=== PATIENT | male | born 1945 | race Caucasian/White ===

== ENCOUNTER 2017-01-10 09:49 | Inpatient (IN) | payer MEDICARE, MEDICAID ==
[~2017-01-10] VITALS: Ht 172.7 cm; Wt 104.3 kg
[~2017-01-10 09:49] MED LIST: ACET1TAB12 PO; ACLI400A2 IH; ALBU4TAB6 PO; ALBUTEROL INHALER INH; ASPI-1159 PO; ATROV INH; ATROVENT INHALER INH; DILT240C91 PO; FLUT1DIS3 INH; FURO40TA5 PO; ISOS30TA6 PO; LOSA50TA20 PO; LOVA20TA2 PO; POTA10TA11 PO; TAMS-11 PO; TIOT18CA3 INH
[2017-01-10] MEDS ORDERED: METHYLPREDNISOLONE SOD SUCC 125 MG/2 ML VIAL IV STA (10:22)
[2017-01-10] MEDS ORDERED: ALBUTEROL (0.083%) 2.5MG/3ML NEB HHN STA (10:22)
[2017-01-10] MEDS ORDERED: IPRATROPIUM BROMIDE (0.02%) 0.5MG/2.5ML NEB HHN STA (10:22)
[2017-01-10 11:04] LABS: HEMATOCRIT. 45.4 % (42.0-52.0); HEMOGLOBIN. 15.3 g/dL (14.0-18.0); MEAN CORPUSCULAR HEMOGLOBIN 30.3 pg (28.0-32.0); MEAN CORPUSCULAR VOLUME 89.9 fL (80.0-94.0); PLATELET 154 x1000/uL (130-400); RED BLOOD CELL COUNT 5.05 mill/uL (4.7-6.1); RED CELL DISTRIBUTION WIDTH 17.4 % (11.6-14.6)
[2017-01-10 11:08] LABS: INR 1.3; PROTHROMBIN TIME 13.5 sec (9.4-11.6)
[2017-01-10 11:24] LABS: CARBON DIOXIDE 21 mEq/L (21-32); CHLORIDE 101 mEq/L (98-107)
[2017-01-10 11:26] LABS: TROPONIN I 0.47 ng/mL (0.00-0.04)
[2017-01-10] MEDS ORDERED: ASPIRIN 325MG TABLET PO ONE (11:30)
[2017-01-10] MEDS ORDERED: ENOXAPARIN 120MG/0.8ML SYR SUBCUT ONE (11:45)
[2017-01-10 12:00] LABS: BG BASE EXCESS -1.4 mmol/L (-2.0-2.0); BG CARBOXYHEMOGLOBIN 1.8 % (0.5-1.5); BG DEOXYHEMOGLOBIN 2.9 % (0.0-5.0); BG FRACTION INSPIRED OXYGEN 45; BG HCO3 ACT 21.9 mmol/L (22.0-26.0); BG METHEMOGLOBIN 0.3 % (0.0-1.5); BG PCO2 33.2 mmHg (35.0-45.0); BG PH 7.438 (7.350-7.450); BG PO2 88.5 mmHg (75.0-100.0); BG SAMPLE SITE RIGHT BRACHIAL; BG TOTAL HEMOGLOBIN 15.4 g/dL (12.0-18.0)
[2017-01-10 12:29] LABS: PLATELET ESTIMATE NORMAL
[2017-01-10 14:00] VITALS: BP 120/63
[2017-01-10] MEDS ORDERED: MULT-1234 PO (14:11)
[2017-01-10] MEDS ORDERED: FINA1TAB18 PO (14:11)
[2017-01-10] MEDS ORDERED: DILT120C51 PO (14:11)
[2017-01-10] MEDS ORDERED: NITR0.4T49 SL (14:11)
[2017-01-10] MEDS ORDERED: SIME125C81 PO (14:11)
[2017-01-10] MEDS ORDERED: ALBU18HF2 IH (14:11)
[2017-01-10] MEDS ORDERED: ATOR20TA65 PO (14:11)
[2017-01-10] MEDS: METHYLPREDNISOLONE SOD SUCC 125 MG/2 ML VIAL IV SCH ×2 (15:00→21:06)
[2017-01-10] MEDS: MORPHINE SULFATE 10 MG/ML CPJ IV PRN ×2 (15:01→19:55)
[2017-01-10] MEDS: IPRATROPIUM/ALBUTEROL 0.5-3(2.5)MG/3ML NEB HHN SCH ×2 (15:40→21:24)
[2017-01-10] MEDS: DILTIAZEM HCL 120MG CAPSULE CD 24HR PO SCH ×2 (16:00→21:00)
[2017-01-10] MEDS ORDERED: CLONIDINE 0.1MG TABLET PO PRN (16:00)
[2017-01-10] MEDS: ASPIRIN 81MG EC TABLET PO SCH (17:39)
[2017-01-10] MEDS: TAMSULOSIN HCL 0.4MG SR CAPSULE PO SCH (18:46)
[2017-01-10 20:00] VITALS: BP 112/59
[2017-01-10 21:03] LABS: CLARITY URINE CLEAR (CLEAR); COLOR URINE DARK YELLOW (YELLOW); GLUCOSE URINE NEGATIVE (NEGATIVE); KETONES URINE NEGATIVE (NEGATIVE); LEUKOCYTE ESTERASE URINE NEGATIVE (NEGATIVE); NITRITE URINE NEGATIVE (NEGATIVE); OCCULT BLOOD URINE NEGATIVE (NEGATIVE); PROTEIN URINE TRACE (NEGATIVE); SPECIFIC GRAVITY URINE 1.023 (1.005-1.030)
[2017-01-10] MEDS: FLUTICASONE/VILANTEROL 200-25 BLST.W.DEV ORI SCH (21:25)
[2017-01-11] VITALS (7 sets, daily range): BP systolic 91–125; BP diastolic 42–77
[2017-01-11] MEDS: IPRATROPIUM/ALBUTEROL 0.5-3(2.5)MG/3ML NEB HHN SCH ×7 (00:56→23:30)
[2017-01-11] MEDS: MORPHINE SULFATE 10 MG/ML CPJ IV PRN ×3 (05:09→20:58)
[2017-01-11] MEDS: METHYLPREDNISOLONE SOD SUCC 125 MG/2 ML VIAL IV SCH ×3 (05:09→21:36)
[2017-01-11 07:15] LABS: CREATINE KINASE MB FRACTION 5.3 ng/mL (0.5-3.6); TROPONIN I 0.19 ng/mL (0.00-0.04)
[2017-01-11 07:32] LABS: HEMATOCRIT. 43.8 % (42.0-52.0); HEMOGLOBIN. 14.7 g/dL (14.0-18.0); MEAN CORPUSCULAR HEMOGLOBIN 29.9 pg (28.0-32.0); MEAN CORPUSCULAR VOLUME 89.5 fL (80.0-94.0); PLATELET 158 x1000/uL (130-400); RED CELL DISTRIBUTION WIDTH 17.8 % (11.6-14.6)
[2017-01-11] MEDS: DILTIAZEM HCL 120MG CAPSULE CD 24HR PO SCH ×2 (08:16→21:07)
[2017-01-11] MEDS: TAMSULOSIN HCL 0.4MG SR CAPSULE PO SCH (09:00)
[2017-01-11] MEDS: ASPIRIN 81MG EC TABLET PO SCH (09:08)
[2017-01-11] MEDS: FINASTERIDE 5MG TABLET PO SCH (09:09)
[2017-01-11] MEDS: POLYETHYLENE GLYCOL 3350 (17GM) 1 DOSE PACK PO SCH (10:15)
[2017-01-11 17:29] LABS: PLATELET ESTIMATE NORMAL
[2017-01-11 23:22] LABS: SODIUM URINE RANDOM < 5 mEq/L
[2017-01-12] VITALS: BP 96/48
[2017-01-12] MEDS: IPRATROPIUM/ALBUTEROL 0.5-3(2.5)MG/3ML NEB HHN SCH ×6 (03:30→23:30)
[2017-01-12] MEDS: MORPHINE SULFATE 10 MG/ML CPJ IV PRN ×2 (03:58→09:58)
[2017-01-12 04:00] VITALS: BP 121/66
[2017-01-12 06:19] LABS: HEMATOCRIT. 47.7 % (42.0-52.0); MEAN CORPUSCULAR HEMOGLOBIN 29.9 pg (28.0-32.0); MEAN CORPUSCULAR VOLUME 89.2 fL (80.0-94.0); MEAN PLATELET VOLUME 8.1 fl (7.4-10.4); PLATELET 191 x1000/uL (130-400); RED BLOOD CELL COUNT 5.35 mill/uL (4.7-6.1); RED CELL DISTRIBUTION WIDTH 17.6 % (11.6-14.6)
[2017-01-12] MEDS: METHYLPREDNISOLONE SOD SUCC 125 MG/2 ML VIAL IV SCH (06:19)
[2017-01-12 08:00] VITALS: BP 115/80
[2017-01-12 08:44] LABS: PHOSPHORUS 2.8 mg/dL (2.5-4.9)
[2017-01-12] MEDS: ASPIRIN 81MG EC TABLET PO SCH (08:59)
[2017-01-12] MEDS: TAMSULOSIN HCL 0.4MG SR CAPSULE PO SCH (08:59)
[2017-01-12] MEDS: DILTIAZEM HCL 120MG CAPSULE CD 24HR PO SCH ×2 (09:00→21:00)
[2017-01-12] MEDS: POLYETHYLENE GLYCOL 3350 (17GM) 1 DOSE PACK PO SCH (09:00)
[2017-01-12] MEDS: FLUTICASONE/VILANTEROL 200-25 BLST.W.DEV ORI SCH (09:00)
[2017-01-12] MEDS: FINASTERIDE 5MG TABLET PO SCH (09:02)
[2017-01-12 11:25] LABS: PLATELET ESTIMATE NORMAL
[2017-01-12 12:00] VITALS: BP 119/68
[2017-01-12 13:42] LABS: BG BASE EXCESS -4.7 mmol/L (-2.0-2.0); BG DEOXYHEMOGLOBIN 11.2 % (0.0-5.0); BG FRACTION INSPIRED OXYGEN 21; BG HCO3 ACT 19.4 mmol/L (22.0-26.0); BG METHEMOGLOBIN 0.4 % (0.0-1.5); BG OXYGEN SATURATION 88.6 % (92.0-98.5); BG OXYHEMOGLOBIN 87.4 % (94.0-97.0); BG PCO2 33.5 mmHg (35.0-45.0); BG PO2 52.8 mmHg (75.0-100.0); BG SAMPLE SITE RIGHT BRACHIAL; BG TOTAL HEMOGLOBIN 16.4 g/dL (12.0-18.0); BG VENT MODE ROOM AIR
[2017-01-12 16:00] VITALS: BP 123/62
[2017-01-12] MEDS: PREDNISONE 10MG TABLET PO SCH (18:42)
[2017-01-12 20:00] VITALS: BP 125/66
[2017-01-13] VITALS: BP 114/68
[2017-01-13 04:00] VITALS: BP 124/71
[2017-01-13] MEDS: IPRATROPIUM/ALBUTEROL 0.5-3(2.5)MG/3ML NEB HHN SCH ×3 (04:50→10:58)
[2017-01-13 06:13] LABS: TROPONIN I 0.15 ng/mL (0.00-0.04)
[2017-01-13 06:24] LABS: HEMATOCRIT. 46.4 % (42.0-52.0); HEMOGLOBIN. 15.8 g/dL (14.0-18.0); MEAN CORPUSCULAR HEMOGLOBIN 30.2 pg (28.0-32.0); MEAN CORPUSCULAR VOLUME 88.5 fL (80.0-94.0); PLATELET 199 x1000/uL (130-400); RED BLOOD CELL COUNT 5.24 mill/uL (4.7-6.1); RED CELL DISTRIBUTION WIDTH 17.8 % (11.6-14.6)
[2017-01-13 08:00] VITALS: BP 138/77
[2017-01-13] MEDS ORDERED: FUROSEMIDE 20MG TABLET PO SCH (09:00)
[2017-01-13] MEDS: FINASTERIDE 5MG TABLET PO SCH (09:00)
[2017-01-13] MEDS: FLUTICASONE/VILANTEROL 200-25 BLST.W.DEV ORI SCH (09:00)
[2017-01-13] MEDS: POLYETHYLENE GLYCOL 3350 (17GM) 1 DOSE PACK PO SCH (09:00)
[2017-01-13] MEDS: PREDNISONE 10MG TABLET PO SCH (09:03)
[2017-01-13] MEDS: ASPIRIN 81MG EC TABLET PO SCH (09:03)
[2017-01-13] MEDS: TAMSULOSIN HCL 0.4MG SR CAPSULE PO SCH (09:13)
[2017-01-13] MEDS ORDERED: PREDNISONE 10MG TABLET PO NR (09:15)
[2017-01-13] MEDS: DILTIAZEM HCL 120MG CAPSULE CD 24HR PO SCH (09:15)
[2017-01-13 09:20] LABS: PLATELET ESTIMATE NORMAL
[2017-01-13] MEDS ORDERED: PREDNISONE 20MG TABLET PO ONE (09:30)
[2017-01-13 09:41] LABS: SODIUM URINE RANDOM 6 mEq/L
[2017-01-13 12:00] VITALS: BP 99/57
[2017-01-13] MEDS ORDERED: LOSARTAN POTASSIUM 50 MG TABLET PO SCH (12:00)
[2017-01-13 12:19] VITALS: BP 146/92
[2017-01-27 09:08] LABS: *CREATININE RANDOM URINE 75.8 mg/dL (Not Estab.); MICROALBUMIN RANDOM URINE 31.4 ug/mL (Not Estab.)
== END 2017-01-13 15:20 | disposition home or self-care (01) | DRG 682 ==
LOC: EDBEDREQ 11:53 → ER 12:22 → 6WST 12:23 → ENRESERV 12:30
PROVIDERS: ADMIT Internal Medicine Critical Care Medicine; ATTEND Internal Medicine Critical Care Medicine
DX: N17.9 Acute kidney failure, unspecified (principal); J96.91 Respiratory failure, unspecified with hypoxia; J44.1 Chronic obstructive pulmonary disease with (acute) exacerbation; E87.1 Hypo-osmolality and hyponatremia; I13.0 Hypertensive heart and chronic kidney disease with heart failure and stage 1 through stage 4 chronic kidney disease, or unspecified chronic kidney disease; B19.20 Unspecified viral hepatitis C without hepatic coma; E78.5 Hyperlipidemia, unspecified; E86.0 Dehydration; F32.9 Major depressive disorder, single episode, unspecified; I25.10 Atherosclerotic heart disease of native coronary artery without angina pectoris; I25.5 Ischemic cardiomyopathy; I50.9 Heart failure, unspecified; I71.4 Abdominal aortic aneurysm, without rupture; M17.0 Bilateral primary osteoarthritis of knee; N18.3 Chronic kidney disease, stage 3 (moderate); N20.9 Urinary calculus, unspecified; N40.0 Benign prostatic hyperplasia without lower urinary tract symptoms; Z88.8 Allergy status to other drugs, medicaments and biological substances; Z59.0 Homelessness; Z79.899 Other long term (current) drug therapy; Z86.79 Personal history of other diseases of the circulatory system; Z87.891 Personal history of nicotine dependence; Z90.49 Acquired absence of other specified parts of digestive tract; Z95.5 Presence of coronary angioplasty implant and graft; Z95.810 Presence of automatic (implantable) cardiac defibrillator; Z99.81 Dependence on supplemental oxygen; Z79.82 Long term (current) use of aspirin; F10.21 Alcohol dependence, in remission
CPT/HCPCS: 36415; 36600; 71010; 76705; 76770; 80048; 80053; 80061; 80076; 81001; 82043; 82375; 82553; 82570; 82805; 83735; 83880; 83935; 84100; 84153; 84156; 84300; 84443; 84481; 84484; 85025; 85379; 85610; 86803; 87040; 87086; 93005; 93970; 94640; 94644; 94664; 96374; 96375; 99291; J1650; J2270; J2930; J7512; J7611; J7620

== ENCOUNTER 2017-04-29 22:00 | Inpatient (IN) | payer MEDICARE, MEDICAID ==
[~2017-04-29] VITALS: Ht 172.7 cm; Wt 95.1 kg
[2017-04-29 22:00] VITALS: BP 126/75
[~2017-04-29 22:00] MED LIST changes: +ACET-2178 PO; -ACLI400A2 IH; +ALBU18HF2 IH; -ALBU4TAB6 PO; -ALBUTEROL INHALER INH; +ATOR20TA65 PO; +ATROV IH; -ATROV INH; -ATROVENT INHALER INH; +BISA10SU8 RC; +DILT120C51 PO; -DILT240C91 PO; +DOCU250C69 PO; +FAMO20TA8 PO; +FINA1TAB18 PO; +FURO40TA5 IV; -FURO40TA5 PO; +LACT10SO6 PO; +MORP15TA67 IV; +MULT-1234 PO; +NITR0.4T49 SL; +NYST15OI TP; +P20 PO; -POTA10TA11 PO; +SIME125C81 PO; +[UNRECOGNIZED DRUG - CODE] TP
[2017-04-29 23:00] VITALS: BP 126/75
[2017-04-30] MEDS ORDERED: LACTULOSE 20G/30ML UDC PO PRN (01:00)
[2017-04-30] MEDS: ACETAMINOPHEN 325MG TABLET PO PRN (03:32)
[2017-04-30] MEDS: IPRATROPIUM/ALBUTEROL 0.5-3(2.5)MG/3ML NEB HHN SCH ×5 (04:00→21:30)
[2017-04-30 06:56] LABS: HEMATOCRIT. 47.5 % (42.0-52.0); HEMOGLOBIN. 15.5 g/dL (14.0-18.0); MEAN CORPUSCULAR HEMOGLOBIN 29.6 pg (28.0-32.0); MEAN CORPUSCULAR VOLUME 90.8 fL (80.0-94.0); MEAN PLATELET VOLUME 9.1 fl (7.4-10.4); PLATELET 87 x1000/uL (130-400); RED BLOOD CELL COUNT 5.23 mill/uL (4.7-6.1); RED CELL DISTRIBUTION WIDTH 14.6 % (11.6-14.6)
[2017-04-30 07:48] LABS: PREALBUMIN 28.7 mg/dL (20.0-40.0)
[2017-04-30] MEDS: PREDNISONE 20MG TABLET PO SCH (08:20)
[2017-04-30] MEDS: DOCUSATE SODIUM 250MG CAPSULE PO SCH (08:20)
[2017-04-30] MEDS: FUROSEMIDE 40MG TABLET PO SCH ×2 (08:21→16:41)
[2017-04-30] MEDS: ISOSORBIDE MONONITRATE 30MG TABLET SR 24HR PO SCH (08:21)
[2017-04-30] MEDS: BISACODYL 10MG SUPP PR SCH (08:23)
[2017-04-30] MEDS: MINERAL OIL/PETROLATUM,WHITE CREAM 113GM JAR TOP SCH (08:24)
[2017-04-30] MEDS: NYSTATIN POWDER 15GM TOP SCH ×2 (08:25→16:40)
[2017-04-30 08:37] VITALS: BP 118/74
[2017-04-30] MEDS ORDERED: HYDROCODONE/ACETAMINOPHEN 5/325MG TABLET PO PRN (08:45)
[2017-04-30 13:50] LABS: PLATELET ESTIMATE DECREASED
[2017-04-30 15:10] VITALS: BP 111/73
[2017-04-30 16:51] VITALS: BP_SYST 109; BP_SYST 112; BP_SYST 128; BP_DIAS 66; BP_DIAS 74; BP_DIAS 78
[2017-04-30 20:00] VITALS: BP 99/70
[2017-04-30] MEDS: ATORVASTATIN CALCIUM 20MG TABLET PO SCH (21:29)
[2017-04-30] MEDS: FAMOTIDINE 20MG TABLET PO SCH (21:29)
[2017-05-01] MEDS: IPRATROPIUM/ALBUTEROL 0.5-3(2.5)MG/3ML NEB HHN SCH ×6 (01:00→20:25)
[2017-05-01 06:33] LABS: HEMATOCRIT. 44.3 % (42.0-52.0); HEMOGLOBIN. 14.9 g/dL (14.0-18.0); MEAN CORPUSCULAR HEMOGLOBIN 30.2 pg (28.0-32.0); MEAN CORPUSCULAR VOLUME 90.3 fL (80.0-94.0); PLATELET 93 x1000/uL (130-400); RED BLOOD CELL COUNT 4.91 mill/uL (4.7-6.1); RED CELL DISTRIBUTION WIDTH 14.8 % (11.6-14.6)
[2017-05-01 08:11] VITALS: BP 116/65
[2017-05-01] MEDS: FUROSEMIDE 40MG TABLET PO SCH ×2 (08:26→17:54)
[2017-05-01] MEDS: ISOSORBIDE MONONITRATE 30MG TABLET SR 24HR PO SCH (08:26)
[2017-05-01] MEDS: DOCUSATE SODIUM 250MG CAPSULE PO SCH (08:27)
[2017-05-01] MEDS: PREDNISONE 20MG TABLET PO SCH (08:27)
[2017-05-01] MEDS: ACETAMINOPHEN 325MG TABLET PO PRN ×2 (08:27→21:36)
[2017-05-01] MEDS ORDERED: POTASSIUM CHLORIDE 20MEQ TABLET SR PO SCH ×2 (08:30→11:30)
[2017-05-01] MEDS: MINERAL OIL/PETROLATUM,WHITE CREAM 113GM JAR TOP SCH (08:33)
[2017-05-01] MEDS: NYSTATIN POWDER 15GM TOP SCH ×2 (08:33→17:54)
[2017-05-01] MEDS: BISACODYL 10MG SUPP PR SCH (08:34)
[2017-05-01 12:06] LABS: PLATELET ESTIMATE DECREASED
[2017-05-01 19:03] LABS: CLARITY URINE CLEAR (CLEAR); COLOR URINE YELLOW (YELLOW); KETONES URINE NEGATIVE (NEGATIVE); LEUKOCYTE ESTERASE URINE NEGATIVE (NEGATIVE); NITRITE URINE NEGATIVE (NEGATIVE); OCCULT BLOOD URINE NEGATIVE (NEGATIVE); PROTEIN URINE NEGATIVE (NEGATIVE); SPECIFIC GRAVITY URINE 1.015 (1.005-1.030); UROBILINOGEN URINE 0.2 E.U./dL (0.2-1.0)
[2017-05-01 20:00] VITALS: BP 128/83
[2017-05-01] MEDS: ATORVASTATIN CALCIUM 20MG TABLET PO SCH (20:50)
[2017-05-01] MEDS: FAMOTIDINE 20MG TABLET PO SCH (20:50)
[2017-05-02] MEDS: IPRATROPIUM/ALBUTEROL 0.5-3(2.5)MG/3ML NEB HHN SCH ×5 (00:20→21:44)
[2017-05-02 07:18] LABS: HEMATOCRIT. 46.9 % (42.0-52.0); HEMOGLOBIN. 15.4 g/dL (14.0-18.0); MEAN CORPUSCULAR HEMOGLOBIN 29.8 pg (28.0-32.0); MEAN CORPUSCULAR VOLUME 90.9 fL (80.0-94.0); MEAN PLATELET VOLUME 8.7 fl (7.4-10.4); PLATELET 110 x1000/uL (130-400); RED BLOOD CELL COUNT 5.16 mill/uL (4.7-6.1); RED CELL DISTRIBUTION WIDTH 14.9 % (11.6-14.6)
[2017-05-02 08:00] VITALS: BP 130/76
[2017-05-02] MEDS: ISOSORBIDE MONONITRATE 30MG TABLET SR 24HR PO SCH (08:15)
[2017-05-02] MEDS: DOCUSATE SODIUM 250MG CAPSULE PO SCH (08:15)
[2017-05-02] MEDS: FUROSEMIDE 40MG TABLET PO SCH ×2 (08:15→16:58)
[2017-05-02] MEDS: PREDNISONE 20MG TABLET PO SCH (08:15)
[2017-05-02] MEDS: BISACODYL 10MG SUPP PR SCH (08:15)
[2017-05-02] MEDS: NYSTATIN POWDER 15GM TOP SCH ×2 (08:16→16:58)
[2017-05-02] MEDS: MINERAL OIL/PETROLATUM,WHITE CREAM 113GM JAR TOP SCH (08:16)
[2017-05-02 08:17] LABS: CHLORIDE 95 mEq/L (98-107); PHOSPHORUS 1.7 mg/dL (2.5-4.9)
[2017-05-02 08:22] LABS: TOTAL IRON BINDING CAPACITY 284 ug/dL (250-450)
[2017-05-02] MEDS ORDERED: POTASSIUM BICARB/CIT ACID 25 MEQ TABLET.EFF PO ONE (10:15)
[2017-05-02] MEDS ORDERED: POTASSIUM CHLORIDE 20MEQ TABLET SR PO SCH (10:45)
[2017-05-02] MEDS ORDERED: POTASSIUM CHLORIDE 20MEQ TABLET SR PO NR ×2 (10:45→13:30)
[2017-05-02 11:02] LABS: NUCLEATED RED BLOOD CELLS 2 /100 WBC; PLATELET ESTIMATE SLIGHTLY DECREASED
[2017-05-02 11:08] LABS: VITAMIN B12 SERUM 1186 pg/mL (211-911)
[2017-05-02 11:20] LABS: FOLIC ACID (FOLATE) SERUM > 20.00 ng/mL (>5.38)
[2017-05-02 14:28] LABS: PROSTRATE SPECIFIC AG TOTAL 4.14 ng/mL (0.0-4.0)
[2017-05-02] MEDS: ASPIRIN 81MG EC TABLET PO SCH (15:21)
[2017-05-02 20:00] VITALS: BP 127/73
[2017-05-02] MEDS: ATORVASTATIN CALCIUM 20MG TABLET PO SCH (20:40)
[2017-05-02] MEDS: FAMOTIDINE 20MG TABLET PO SCH (20:40)
[2017-05-03] MEDS: IPRATROPIUM/ALBUTEROL 0.5-3(2.5)MG/3ML NEB HHN SCH ×4 (02:15→21:07)
[2017-05-03 06:58] LABS: HEMATOCRIT. 41.2 % (42.0-52.0); HEMOGLOBIN. 13.7 g/dL (14.0-18.0); MEAN CORPUSCULAR HEMOGLOBIN 30.2 pg (28.0-32.0); MEAN CORPUSCULAR VOLUME 90.6 fL (80.0-94.0); PLATELET 112 x1000/uL (130-400); RED BLOOD CELL COUNT 4.54 mill/uL (4.7-6.1); RED CELL DISTRIBUTION WIDTH 14.3 % (11.6-14.6)
[2017-05-03 08:00] VITALS: BP 112/61
[2017-05-03] MEDS: FUROSEMIDE 40MG TABLET PO SCH (08:22)
[2017-05-03] MEDS: ASPIRIN 81MG EC TABLET PO SCH (08:23)
[2017-05-03] MEDS: PREDNISONE 10MG TABLET PO SCH (08:23)
[2017-05-03] MEDS: POTASSIUM CHLORIDE 20MEQ TABLET SR PO SCH ×2 (08:23→16:48)
[2017-05-03] MEDS: DOCUSATE SODIUM 250MG CAPSULE PO SCH (08:23)
[2017-05-03] MEDS: MINERAL OIL/PETROLATUM,WHITE CREAM 113GM JAR TOP SCH (08:24)
[2017-05-03] MEDS: NYSTATIN POWDER 15GM TOP SCH ×2 (08:24→17:13)
[2017-05-03] MEDS: ISOSORBIDE MONONITRATE 30MG TABLET SR 24HR PO SCH (08:27)
[2017-05-03] MEDS: BISACODYL 10MG SUPP PR SCH (08:28)
[2017-05-03] MEDS ORDERED: POTASSIUM CHLORIDE INJ 40 MEQ in DEXT 5% WATER 500 ML IV NR (14:00)
[2017-05-03 15:49] LABS: PLATELET ESTIMATE DECREASED
[2017-05-03 20:00] VITALS: BP 103/61
[2017-05-03] MEDS: ATORVASTATIN CALCIUM 20MG TABLET PO SCH (21:45)
[2017-05-03] MEDS: FAMOTIDINE 20MG TABLET PO SCH (21:45)
[2017-05-04] MEDS: IPRATROPIUM/ALBUTEROL 0.5-3(2.5)MG/3ML NEB HHN SCH ×4 (03:35→21:22)
[2017-05-04 07:02] LABS: HEMATOCRIT. 42.7 % (42.0-52.0); HEMOGLOBIN. 13.9 g/dL (14.0-18.0); MEAN CORPUSCULAR HEMOGLOBIN 29.9 pg (28.0-32.0); MEAN CORPUSCULAR VOLUME 91.3 fL (80.0-94.0); MEAN PLATELET VOLUME 8.9 fl (7.4-10.4); PLATELET 111 x1000/uL (130-400); RED BLOOD CELL COUNT 4.67 mill/uL (4.7-6.1); RED CELL DISTRIBUTION WIDTH 14.5 % (11.6-14.6)
[2017-05-04 08:43] VITALS: BP 112/73
[2017-05-04] MEDS: BISACODYL 10MG SUPP PR SCH (09:00)
[2017-05-04] MEDS: PREDNISONE 10MG TABLET PO SCH (10:02)
[2017-05-04] MEDS: ASPIRIN 81MG EC TABLET PO SCH (10:02)
[2017-05-04] MEDS: POTASSIUM CHLORIDE 20MEQ TABLET SR PO SCH (10:03)
[2017-05-04] MEDS: ISOSORBIDE MONONITRATE 30MG TABLET SR 24HR PO SCH (10:03)
[2017-05-04] MEDS: FUROSEMIDE 40MG TABLET PO SCH (10:04)
[2017-05-04] MEDS: DOCUSATE SODIUM 250MG CAPSULE PO SCH (10:04)
[2017-05-04] MEDS: NYSTATIN POWDER 15GM TOP SCH ×2 (10:04→18:59)
[2017-05-04] MEDS: MINERAL OIL/PETROLATUM,WHITE CREAM 113GM JAR TOP SCH (10:05)
[2017-05-04 20:00] VITALS: BP 111/71
[2017-05-04 21:00] LABS: PLATELET ESTIMATE DECREASED
[2017-05-04] MEDS: FAMOTIDINE 20MG TABLET PO SCH (21:46)
[2017-05-04] MEDS: ATORVASTATIN CALCIUM 20MG TABLET PO SCH (21:46)
[2017-05-05] MEDS: IPRATROPIUM/ALBUTEROL 0.5-3(2.5)MG/3ML NEB HHN SCH ×4 (03:04→20:00)
[2017-05-05 06:50] LABS: HEMATOCRIT. 41.9 % (42.0-52.0); HEMOGLOBIN. 13.9 g/dL (14.0-18.0); MEAN CORPUSCULAR HEMOGLOBIN 30.1 pg (28.0-32.0); MEAN CORPUSCULAR VOLUME 91.2 fL (80.0-94.0); MEAN PLATELET VOLUME 8.6 fl (7.4-10.4); PLATELET 111 x1000/uL (130-400)
[2017-05-05] MEDS ORDERED: HYDROCODONE/ACETAMINOPHEN 5/325MG TABLET PO PRN (07:45)
[2017-05-05 08:00] VITALS: BP 114/66
[2017-05-05 08:14] LABS: CHLORIDE 99 mEq/L (98-107)
[2017-05-05 08:22] LABS: 25-HYDROXY VITAMIN D3 21 ng/mL (.)
[2017-05-05] MEDS: PREDNISONE 10MG TABLET PO SCH (08:32)
[2017-05-05] MEDS: ISOSORBIDE MONONITRATE 30MG TABLET SR 24HR PO SCH (08:33)
[2017-05-05] MEDS: ASPIRIN 81MG EC TABLET PO SCH (08:33)
[2017-05-05] MEDS: POTASSIUM CHLORIDE 20MEQ TABLET SR PO SCH (08:34)
[2017-05-05] MEDS: DOCUSATE SODIUM 250MG CAPSULE PO SCH (08:34)
[2017-05-05] MEDS: FUROSEMIDE 40MG TABLET PO SCH (08:34)
[2017-05-05] MEDS: MINERAL OIL/PETROLATUM,WHITE CREAM 113GM JAR TOP SCH (08:39)
[2017-05-05] MEDS: BISACODYL 10MG SUPP PR SCH (08:39)
[2017-05-05] MEDS: NYSTATIN POWDER 15GM TOP SCH ×2 (08:39→16:59)
[2017-05-05] MEDS ORDERED: FUROSEMIDE 40MG TABLET PO SCH (09:00)
[2017-05-05 10:42] LABS: PLATELET ESTIMATE SLIGHTLY DECREASED
[2017-05-05] MEDS: ACETAMINOPHEN 325MG TABLET PO PRN (13:34)
[2017-05-05 20:00] VITALS: BP 101/69
[2017-05-05] MEDS: ATORVASTATIN CALCIUM 20MG TABLET PO SCH (20:35)
[2017-05-05] MEDS: FAMOTIDINE 20MG TABLET PO SCH (20:39)
[2017-05-06] MEDS: IPRATROPIUM/ALBUTEROL 0.5-3(2.5)MG/3ML NEB HHN SCH ×3 (00:45→14:18)
[2017-05-06] MEDS: ACETAMINOPHEN 325MG TABLET PO PRN (01:31)
[2017-05-06 07:00] LABS: BASOPHILS % 0.2 % (0.0-2.0); EOSINOPHILS % 0.7 % (0.0-5.0); HEMATOCRIT. 38.5 % (42.0-52.0); HEMOGLOBIN. 12.9 g/dL (14.0-18.0); LYMPHOCYTES % 7.9 % (20.0-50.0); MEAN CORPUSCULAR HEMOGLOBIN 30.6 pg (28.0-32.0); MEAN CORPUSCULAR VOLUME 90.9 fL (80.0-94.0); MEAN PLATELET VOLUME 8.5 fl (7.4-10.4); NEUTROPHILS % 88.2 % (40.0-76.0); PLATELET 100 x1000/uL (130-400); RED BLOOD CELL COUNT 4.23 mill/uL (4.7-6.1); RED CELL DISTRIBUTION WIDTH 14.8 % (11.6-14.6)
[2017-05-06 08:00] VITALS: BP 133/75
[2017-05-06] MEDS ORDERED: ERGOCALCIFEROL 50000UNITS CAPSULE PO SCH (08:00)
[2017-05-06] MEDS: DOCUSATE SODIUM 250MG CAPSULE PO SCH (09:00)
[2017-05-06] MEDS: BISACODYL 10MG SUPP PR SCH (09:00)
[2017-05-06] MEDS: NYSTATIN POWDER 15GM TOP SCH (09:00)
[2017-05-06] MEDS: ASPIRIN 81MG EC TABLET PO SCH (10:01)
[2017-05-06] MEDS: POTASSIUM CHLORIDE 20MEQ TABLET SR PO SCH (10:01)
[2017-05-06] MEDS: PREDNISONE 10MG TABLET PO SCH (10:01)
[2017-05-06] MEDS: ISOSORBIDE MONONITRATE 30MG TABLET SR 24HR PO SCH (10:04)
[2017-05-06] MEDS: MINERAL OIL/PETROLATUM,WHITE CREAM 113GM JAR TOP SCH (10:08)
[2017-05-06 14:12] VITALS: BP 133/75
== END 2017-05-06 15:15 | disposition home or self-care (01) | DRG 280 ==
PROVIDERS: ADMIT Physical Medicine & Rehabilitation Spinal Cord Injury Medicine; ATTEND Internal Medicine Critical Care Medicine
DX: I21.4 Non-ST elevation (NSTEMI) myocardial infarction (principal); J96.91 Respiratory failure, unspecified with hypoxia; I50.23 Acute on chronic systolic (congestive) heart failure; N17.9 Acute kidney failure, unspecified; I95.9 Hypotension, unspecified; E87.5 Hyperkalemia; D69.6 Thrombocytopenia, unspecified; I48.0 Paroxysmal atrial fibrillation; I48.92 Unspecified atrial flutter; I13.0 Hypertensive heart and chronic kidney disease with heart failure and stage 1 through stage 4 chronic kidney disease, or unspecified chronic kidney disease; J44.1 Chronic obstructive pulmonary disease with (acute) exacerbation; N39.0 Urinary tract infection, site not specified; R13.10 Dysphagia, unspecified; N20.9 Urinary calculus, unspecified; T38.0X5A Adverse effect of glucocorticoids and synthetic analogues, initial encounter; N40.0 Benign prostatic hyperplasia without lower urinary tract symptoms; N18.9 Chronic kidney disease, unspecified; K59.00 Constipation, unspecified; I25.5 Ischemic cardiomyopathy; I25.10 Atherosclerotic heart disease of native coronary artery without angina pectoris; F32.9 Major depressive disorder, single episode, unspecified; E87.6 Hypokalemia; E55.9 Vitamin D deficiency, unspecified; E78.5 Hyperlipidemia, unspecified; E66.9 Obesity, unspecified; D64.9 Anemia, unspecified; B95.2 Enterococcus as the cause of diseases classified elsewhere; B19.20 Unspecified viral hepatitis C without hepatic coma; R26.9 Unspecified abnormalities of gait and mobility; Z95.810 Presence of automatic (implantable) cardiac defibrillator; Z68.35 Body mass index [BMI] 35.0-35.9, adult; Z86.79 Personal history of other diseases of the circulatory system; Z87.891 Personal history of nicotine dependence; Z95.5 Presence of coronary angioplasty implant and graft
CPT/HCPCS: 36415; 80048; 80053; 81003; 82270; 82306; 82607; 82746; 83540; 83550; 83735; 84100; 84134; 84153; 84443; 84630; 85025; 87086; 92610; 93970; 94640; 97110; 97112; 97116; 97162; 97166; 97530; 97535; A6261; J3480; J7050; J7060; J7512; J7620